=== PATIENT | male | born 1940 | race Caucasian/White ===

== ENCOUNTER → 2019-05-04 | Outpatient (CLI) | payer OTHER ==
--- NOTE | 2019-05-04 11:07 | 2DMMODE ---
[place] [address] 2 D/M-MODE ECHOCARDIOGRAM Name: GINA OWENS [place] Room: [facility]#: [id number] Admission: 05/04/19 Attend Phys: Torsten Laguerre MD Discharge: Date of : 44 Date of Service: 05/04/19 1105 Report #: [id number] THIS REPORT FOR: cc: Physician not on staff Physician not on staff Dell Freeman MD [facility] ~ ADDENDUM APPROVED REPORT Study performed: 05/04/2019 10:08:53 EXAM: Comprehensive 2D, Doppler, and color-flow Echocardiogram Patient Location: Out-Patient BSA: 2.06 HR: 48 bpm BP: 140/60 mmHg Other Information Study Quality: Good Indications Ischemic heart disease 2D Dimensions IVSd: 11.10 (7-11mm) LVOT Diam: 20.83 (18-24mm) LVDd: 38.71 mm PWd: 8.75 (7-11mm) Ascending Ao: 24.62 (22-36mm) LVDs: 30.41 (25-40mm) Aortic Root: 24.37 mm Volumes Left Atrial Volume (Systole) LA ESV Index: 16.20 mL/m2 Aortic Valve AoV Peak Arnold.: 3.44 m/s AO Peak Gr.: 47.29 mmHg LVOT Max P.87 mmHg AO Mean Gr.: 29.10 mmHg LVOT Mean P.37 mmHg LVOT Max V: 0.85 m/s AO V2 VTI: 86.78 cm LVOT Mean V: 0.53 m/s DALE (VTI): 0.80 cm2 LVOT V1 VTI: 20.28 cm Mitral Valve E/A Ratio: 0.70 [place] [address] 2 D/M-MODE ECHOCARDIOGRAM Name: GINA OWENS Room: [facility]#: [id number] Admission: 05/04/19 Attend Phys: Torsten Laguerre MD Discharge: Date of : 44 Date of Service: 05/04/19 1105 Report #: [id number] MV Decel. Time: 499.34 ms MV E Max Arnold.: 0.77 m/s MV PHT: 144.81 ms MVA (PHT): 1.52 cm2 TDI E/Lateral E': 11.00 E/Medial E': 19.25 Medial E' Arnold.: 0.04 m/s Lateral E' Arnold.: 0.07 m/s Pulmonary Valve PV Peak Arnold.: 0.86 m/s PV Peak Gr.: 2.93 mmHg Tricuspid Valve RAP Estimate: 5.00 mmHg TR Peak Gr.: 17.57 mmHg RVSP: 22.57 mmHg PA Pressure: 22.57 mmHg Left Ventricle The left ventricle is normal size. There is normal LV segmental wall motion. There is normal left ventricular wall thickness. Left ventricular systolic function is normal. LVEF is 55-60%. Grade I - abnormal relaxation pattern. Right Ventricle The right ventricle is normal size. The right ventricular systolic function is normal. Atria The left atrium size is normal. The right atrium size is normal. Aortic Valve Aortic valve is moderately calcified. Mild aortic regurgitation. Severe aortic stenosis. Calculated DALE by the continuity equation is 0.8 cm2. Mitral Valve Mild mitral annular calcification. There is no mitral valve regurgitation noted. No evidence of mitral valve stenosis. Tricuspid Valve The tricuspid valve is normal in structure. Mild tricuspid regurgitation. No pulmonary hypertension[place] [address] 2 D/M-MODE ECHOCARDIOGRAM Name: GINA OWENS [place] Room: [facility]#: [id number] Admission: 05/04/19 Attend Phys: Torsten Laguerre MD Discharge: Date of : 44 Date of Service: 05/04/19 1105 Report #: [id number] The pulmonary valve is normal in structure. There is no pulmonic valvular regurgitation. Great Vessels The aortic root is normal in size. IVC is normal in size and collapses >50% with inspiration. Pericardium There is no pericardial effusion. <Conclusion> The left ventricle is normal size. There is normal left ventricular wall thickness. Left ventricular systolic function is normal. LVEF is 55-60%. Grade I - abnormal relaxation pattern. Aortic valve is moderately calcified. Calculated DALE by the continuity equation is 0.8 cm2. Mild tricuspid regurgitation. No pulmonary hypertension. IVC is normal in size and collapses >50% with inspiration. Mild mitral annular calcification. <ELECTRONICALLY SIGNED> By: Dell Freeman MD, FACC 05/04/19 1105 1105 1105 Dell Freeman MD, FACC /INF
[2019-05-04 11:33] LABS: URINE BILIRUBIN NEGATIVE (Negative); URINE BLOOD NEGATIVE (Negative); URINE CLARITY CLEAR; URINE COLOR YELLOW; URINE GLUCOSE-RANDOM 3+ (Negative); URINE KETONES NEGATIVE (Negative); URINE LEUKOCYTES NEGATIVE (Negative); URINE NITRITE NEGATIVE (Negative); URINE PROTEIN NEGATIVE (Negative); URINE SPECIFIC GRAVITY 1.025 (1.005-1.030); URINE UROBILINOGEN 0.2 E.U./dl (0.2-1.0)
[2019-05-04 11:33] LABS: ALBUMIN 4.1 g/dL (3.4-5.0); CALCIUM 8.2 mg/dL (8.5-10.1); CREATININE 1.6 mg/dL (0.6-1.3); POTASSIUM 4.3 mmol/L (3.5-5.1); TOTAL BILIRUBIN 0.6 mg/dL (<0.1-1.0); TOTAL PROTEIN 7.6 g/dL (6.4-8.2)
== END ==
LOC: M.CRD 10:00
PROVIDERS: Orthopaedic Surgery
DX: I08.3 Combined rheumatic disorders of mitral, aortic and tricuspid valves (principal); I25.9 Chronic ischemic heart disease, unspecified; E11.9 Type 2 diabetes mellitus without complications